=== PATIENT | female | born 1985 | race Two or more races ===

== ENCOUNTER 2023-08-12 11:19 | Emergency (ER) | payer MEDICAID ==
[~2023-08-12] VITALS: Ht 165.1 cm; Wt 108.4 kg
[2023-08-12] MEDS ORDERED: KETOROLAC TROMETH 60MG/2ML VIAL IM ONE (15:30)
[2023-08-12 16:20] LABS: Alanine Aminotransferase 21 U/L (7-40); Albumin 4.3 g/dL (3.2-4.8); Alkaline Phosphatase 73 U/L (46-116); Anion Gap 9 (5-15); Aspartate Aminotransferase 15 U/L (13-40); BUN/Creatinine Ratio 9.6 (10.0-20.0); Bilirubin, Total 1.3 mg/dL (0.2-1.0); Blood Urea Nitrogen 7 mg/dL (9-23); Calcium 9.1 mg/dL (8.5-10.1); Carbon Dioxide 23 mmol/L (20-30); Chloride 104 mmol/L (98-107); Creatine Kinase IFCC 46 U/L (34-145); Glucose 88 mg/dL (74-106); Potassium 3.7 mmol/L (3.5-5.1); Sodium 136 mmol/L (136-145); Total Protein 6.8 g/dL (5.7-8.2)
[2023-08-12 16:26] LABS: Urine Bacteria FEW /hpf (None Seen); Urine Blood Negative /uL (Negative); Urine Clarity HAZY (Clear); Urine Color Yellow (Yellow); Urine Mucus FEW (None Seen); Urine Protein, UAD 1+ (Negative); Urine Specific Gravity 1.031 (1.001-1.035); Urine Urobilinogen Normal (Negative); Urine WBC 1 /hpf (0 - 5); Urine pH 6.5 (5.0-8.0)
[2023-08-12 16:27] LABS: Basophils # (auto) 0.1 10 ^3/uL (0-0.2); Basophils % (auto) 0.4 % (0.0-2.0); Eosinophils # (auto) 0 10 ^3/uL (0-0.8); Hematocrit 35.6 % (36.0-46.0); Hemoglobin 11.5 g/dL (12.2-16.2); Lymphocytes # (auto) 0.5 10 ^3/uL (0.4-5.4); Lymphocytes % (auto) 2.2 % (10.0-50.0); Mean Corpuscular Hemoglobin 27.7 pg (28.0-32.0); Mean Corpuscular Hgb Conc. 32.5 g/dL (32.0-36.0); Mean Corpuscular Volume 85.3 fL (80.0-100.0); Monocytes # (auto) 0.9 10 ^3/uL (0-1.3); Monocytes % (auto) 4.4 % (0.0-12.0); Neutrophils # (auto) 19.9 10 ^3/uL (1.6-8.6); Red Blood Cells 4.17 10^6/uL (4.0-5.20); Red Cell Distribution Width 14.6 % (11.8-14.3); White Blood Cell 21.4 10^3/uL (4.4-10.8)
[2023-08-12 17:21] VITALS: BP 132/81
[2023-08-12] MEDS ORDERED: cefTRIAXone SOD 1,000 MG VL IM ONE (17:45)
[2023-08-12 17:51] LABS: COVID19 ANTIGEN SOFIA FIA NEGATIVE (NEGATIVE)
[2023-08-12 17:51] LABS: Rapid Influenza A Negative (Negative); Rapid Influenza B Negative (Negative)
[2023-08-12 17:58] VITALS: PULSE 110; RESP 18; TEMP 98.7; O2SAT 97
[2023-08-12] MEDS ORDERED: AZIT-81 PO (18:02)
[2023-08-12] MEDS ORDERED: ACET500T58 PO (18:02)
[2023-08-12] MEDS ORDERED: MELO7.5T7 PO (18:02)
[2023-08-12] MEDS ORDERED: AUG875T PO (18:02)
== END 2023-08-12 18:06 | disposition home or self-care (01) ==
LOC: ER 11:19
DX: D72.829 Elevated white blood cell count, unspecified (principal); R09.81 Nasal congestion; Z79.899 Other long term (current) drug therapy; Z20.822 Contact with and (suspected) exposure to COVID-19
CPT/HCPCS: 36415; 80053; 81001; 82550; 85025; 87426; 87804; 96372; 99284; J0696; J1885

== ENCOUNTER 2023-08-14 07:16 | Emergency (ER) | payer MEDICAID ==
[~2023-08-14] VITALS: Ht 165.1 cm; Wt 106.3 kg
[~2023-08-14 07:16] MED LIST: ACET500T58 PO; AUG875T PO; AZIT-81 PO; MELO7.5T7 PO
[2023-08-14 08:03] VITALS: BP 120/75; PULSE 85; RESP 18; TEMP 98.3; O2SAT 97
[2023-08-14] MEDS ORDERED: METH4PAK PO (08:09)
[2023-08-14] MEDS ORDERED: EPINEPHrine HCL 1 MG/1 ML AMP SC ONE (08:15)
== END 2023-08-14 08:28 | disposition home or self-care (01) ==
LOC: ER 07:16
DX: T78.40XA Allergy, unspecified, initial encounter (principal); Z79.2 Long term (current) use of antibiotics; Z79.899 Other long term (current) drug therapy; Y92.89 Other specified places as the place of occurrence of the external cause
CPT/HCPCS: 96372; 99283; J0171